=== PATIENT | female | born 2000 | race African-American/Black ===

== ENCOUNTER 2019-05-12 14:43 | Emergency (ER) | payer OTHER ==
[~2019-05-12] VITALS: Ht 170.2 cm; Wt 65.8 kg
--- NOTE | 2019-05-12 15:09 | NUR ---
ED Nurse Note: A/OX4. REPORTS OF HAVING FLU-LIKE SYMPTOMS SINCE YESTERDAY- FATIGUE, PRODUCTIVE COUGH, HEADACHE. PER PT, SHE DIDNT TRAVEL RECENTLY BUT WORKS AT [employer] [facility] [place]. NO FEVER NOTED AT THIS TIME. BREATHING NORMAL/EVEN/UNLABORED. SKIN WARM/DRY. NAD NOTED.
[2019-05-12 16:20] LABS: APPEARANCE,URINE CLEAR; BILIRUBIN, URINE NEGATIVE (NEGATIVE); COLOR,URINE PALE YELLOW; GLUCOSE, URINE (UA) NEGATIVE (NEGATIVE); KETONES,URINE NEGATIVE (NEGATIVE); LEUKOCYTE ESTERASE ,URINE NEGATIVE (NEGATIVE); NITRITE,URINE NEGATIVE (NEGATIVE); PH,URINE 6 (4.5-8.0); PROTEIN,URINE NEGATIVE (NEGATIVE); UROBILINOGEN,URINE NORMAL MG/DL (0.0-1.0)
--- NOTE | 2019-05-12 16:37 | Emergency Room Report ---
History of Present Illness General Chief Complaint: Flu Like Symptoms Source: Patient (Lianne Callejas) Present Illness HPI Patient presents to the emergency department complaining of cough, subjective fevers and 9 out of 10 severity body aches and headache x2 days. Patient also is reporting urinary frequency. She denies recent travel or contact with any persons being investigated or have been tested positive for coronavirus. She denies neck pain or stiffness. She denies photophobia. She denies abdominal pain or tenderness. She denies dysuria, hematuria or urgency. She denies nausea or vomiting. Patient states she took some Tylenol and multisymptom cough and cold medications at approximately 11 AM. She states she did not receive this years flu vaccine. She reports she is coughing up dark-colored mucus. She denies sore throat. She does report some nasal congestion and rhinorrhea. Denies dyspnea, SOB, wheezing, CP or palpitations. She denies sudden onset of her head ache. (Lianne Callejas) Allergies: Coded Allergies: No Known Allergies (Unverified , 05/12/19) Patient History Past Medical History: see triage record Past Surgical History: none Pertinent Family History: none Last Menstrual Period: 05/02/19 Now: No : 0 Reviewed Nursing Documentation: PMH: Agreed; PSxH: Agreed (Lianne Callejas) Nursing Documentation-PMH Past Medical History: No Stated History (Lianne Callejas) Review of Systems All Other Systems: negative except mentioned in HPI (Lianne Callejas) Physical Exam Vital Signs Date Time Temp Pulse Resp B/P (MAP) Pulse Ox O2 Delivery O2 Flow Rate FiO2 05/12/19 14:49 99.1 120 18 109/71 (84) 97 Room Air Sp02 EP Interpretation: reviewed, normal General Appearance: no apparent distress, alert, GCS 15, non-toxic Head: normocephalic, atraumatic Eyes: bilateral eye normal inspection, bilateral eye PERRL, bilateral eye other - no photophobia ENT: hearing grossly normal, normal voice, TMs + canals normal, moist mucus membranes, pharyngeal erythema, other - no tonsillar swelling or exudates Neck: full range of motion, no meningismus, no bony tend Respiratory: chest non-tender, lungs clear, normal breath sounds, no wheezing, speaking full sentences Cardiovascular #1: regular rate, rhythm, tachycardia Gastrointestinal: normal bowel sounds, non tender, soft Genitourinary: normal inspection, no CVA tenderness Musculoskeletal: back normal, normal range of motion, gait/station normal, non- tender Neurologic: alert, motor strength/tone normal, oriented x3, sensory intact, responsive, speech normal Psychiatric: judgement/insight normal Skin: no rash, normal color Lymphatic: other - bilateral subparotid LAD. (Lianne Callejas) Medical Decision Making PA Attestation Dr. Torres Is my supervising Physician whom patient management has been discussed with. (Lianne Callejas) Diagnostic Impression: Primary Impression: Acute viral syndrome Additional Impression: History of tachycardia ER Course Patient presents to the emergency department complaining of cough, subjective fevers and 9 out of 10 severity body aches and headache x2 days. Patient also is reporting urinary frequency. She denies recent travel or contact with any persons being investigated or have been tested positive for coronavirus. She denies neck pain or stiffness. She denies photophobia. She denies abdominal pain or tenderness. She denies dysuria, hematuria or urgency. She denies nausea or vomiting. Patient states she took some Tylenol and multisymptom cough and cold medications at approximately 11 AM. She states she did not receive this years flu vaccine. She reports she is coughing up dark-colored mucus. She denies sore throat. She does report some nasal congestion and rhinorrhea. Denies dyspnea, SOB, wheezing, CP or palpitations. She denies sudden onset of her head ache. Ddx considered but are not limited to URI, pneumonia, PE, strep pharyngitis, meningitis, influenza, OM/OE just to name a few. Vital signs: Pt is tachycardic, Pt. is afebrile, the remaining VS are WNL H&PE are most consistent with Viral Syndrome suspicious for Influenza will treat clinically - no meningeal signs or focal deficits. Lungs are clear and oropharynx is not involved, no evidence of bacterial infection at this time. PT. Low risk for nCov-19 re- tachycardia: pt. reports She and her father have long standing hx of tachycardia. ORDERS: -UA: Unremarkable -Urine Hcg: negative - CXR: WNL ED INTERVENTIONS: -Tylenol PO UPON D/C pt's repeated VS show pt. to still be tachycardic but now with fever. She was given Tylenol PO. --PT. EDUCATION: --I discussed with this patient that I will be prescribing Tamiflu which is an antiviral. This medication is not always covered by insurance and is not always available at pharmacies. I educated patient that this medication has been shown to reduce symptoms by 1 day, and if unable to obtain there is no alternative, and to continue conservative treatment. DISCHARGE: At this time pt. is stable for d/c to home. Will provide printed patient care instructions, and any necessary prescriptions. Care plan and follow up instructions have been discussed with the patient prior to discharge. Labs Test 05/12/19 16:00 Urine Color Pale yellow Urine Appearance Clear Urine pH 6 (4.5-8.0) Urine Specific [place] 1.005 (1.005-1.035) Urine Protein Negative (NEGATIVE) Urine Glucose (UA) Negative (NEGATIVE) Urine Ketones Negative (NEGATIVE) Urine Blood Negative (NEGATIVE) Urine Nitrite Negative (NEGATIVE) Urine Bilirubin Negative (NEGATIVE) Urine Urobilinogen Normal MG/DL (0.0-1.0) Urine Leukocyte Esterase Negative (NEGATIVE) Urine HCG, Qualitative Negative (NEGATIVE) (Lianne Callejas) Chest X-Ray Diagnostic Results Chest X-Ray Diagnostic Results : Chest X-Ray Ordered: Yes # of Views/Limited/Complete: 1 View Indication: Other - productive cough EP Interpretation: Yes PA Xray: Interpretation reviewed, by supervising MD, and agrees with findings. Interpretation: no consolidation, no effusion, no pneumothorax, no acute cardiopulmonary disease Impression: No acute disease Electronically Signed by: Lianne Callejas PA-C (Lianne Callejas) Chest X-Ray Diagnostic Results : Electronically Signed by: Duong Jason documentation of Xray reviewed by me and is accurate, Marciano Torres MD (Marciano Torres MD) Last Vital Signs Date Time Temp Pulse Resp B/P (MAP) Pulse Ox O2 Delivery O2 Flow Rate FiO2 05/12/19 15:08 120 18 Room Air 05/12/19 14:49 99.1 109/71 (84) 97 (Lianne Callejas) Disposition: HOME, SELF-CARE Condition: Stable Scripts Cetirizine Hcl/Pseudoephedrine (ZYRTEC-D TABLET) 1 Each Tab.er.12h 1 EACH ORAL Q12HR, #14 TAB Prov: Lianne Callejas 05/12/19 Guaifenesin (Mucinex) 1,200 Mg Tab.er.12h 1200 MG PO Q12HR, #20 TAB Prov: Lianne Callejas 05/12/19 D-Methorphan Hb/Prometh Hcl* (PROMETHAZINE-DM SYRUP*) 118 Ml Syrup 5 ML ORAL Q6H PRN for For Cough, #120 ML 0 Refills Prov: Lianne Callejas 05/12/19 Oseltamivir Phosphate (Tamiflu) 75 Mg Capsule 75 MG ORAL TWICE A DAY for 5 Days, #10 CAP Prov: Lianne Callejas 05/12/19 Acetaminophen* (TYLENOL EXTRA STRENGTH*) 500 Mg Tablet 500 MG ORAL Q6H PRN for Mild Pain/Temp > 100.5, #30 TAB 0 Refills Prov: Lianne Callejas 05/12/19 Referrals: [facility] (PCP) Departure Forms: Return to Work Return to Work Date: May 16, 2019 Work Restrictions: None Other Restrictions: onset of symptoms was 05/12/2019. Return to Full Activity: May 16, 2019 Patient Instructions: Upper Respiratory Infection, Adult, [id number] Additional Instructions: Take medications as directed. Follow up with a Primary Care Provider in 3-5 days, even if your symptoms have resolved. --Please review list of primary care clinics, if you do not already have a primary care provider Return sooner to ED if new symptoms occur, or current symptoms become worse. - Please note that this Emergency Department Report was dictated using [employer] tech technology software, occasionally this can lead to erroneous entry secondary to interpretation by the dictation equipment. Lianne Callejas May 12, 2019 16:37 Marciano Torres MD May 14, 2019 05:40
--- NOTE | 2019-05-12 16:38 | Diagnostic Imaging Report ---
Indication: Reason For Exam: PAIN Technique: One view of the chest Comparison: none Findings: Lungs and pleural spaces are clear. Heart size is normal. Impression: No acute process
[2019-05-12] MEDS ORDERED: TAMIFLU75 MG ORAL (16:44)
[2019-05-12] MEDS ORDERED: PROMETHAZINE-D118 ML ORAL (16:44)
[2019-05-12] MEDS ORDERED: TYLENOL EXTRA500 MG ORAL (16:44)
[2019-05-12] MEDS ORDERED: ZYRTEC-D TABLE1 EACH ORAL (16:44)
[2019-05-12] MEDS ORDERED: MUCINEX1200 MG PO (16:44)
[2019-05-12 16:55] VITALS: BP 125/84
--- NOTE | 2019-05-12 17:05 | NUR ---
ER DISCHARGE NOTE: Patient is cleared to be discharged per P.A. Patient has tempof 100.7F with HR 111. PA notified and ordred to d/c patient after Tylenol administration. No reassessment needed at this time per P.A. Patient appears comfortable. No facial grimacing or guarding noted. Patient agreed to the plan. D/C instrution and prescriptions given to pt. Patient verbalized understanding of it. ID band removed. Patient ambulated out with steady gait.
== END 2019-05-12 17:05 | disposition home or self-care (01) ==
LOC: EMR 16:21
DX: B34.9 Viral infection, unspecified (principal); R00.0 Tachycardia, unspecified
CPT/HCPCS: 71045; 81003; 81025; Z7502; 99283